=== PATIENT | female | born 1955 | race Caucasian/White ===

== ENCOUNTER 2016-07-21 18:20 | Emergency (ER) | payer OTHER ==
[2016-07-21 18:24] VITALS: BP 220/106; PULSE 92; RESP 18; TEMP 97.5; O2SAT 98
[2016-07-21] MEDS ORDERED: NAPR220T95 PO (18:32)
[2016-07-21] MEDS ORDERED: FAMO1TAB37 PO (18:32)
--- NOTE | 2016-07-21 18:50 | PD ---
HPI Chief Complaint: Hypertension Time Seen by Provider: 18:34 Travel History International Travel<30 days: No Contact w/Intl Traveler<30days: No Traveled to known affect area: No History of Present Illness HPI This 61-year-old female is sent from a dentist office because of high blood pressure. She has a history of high blood pressure and was on medication about 15 years ago most recently she is generally able to control it with exercise. She is not on medication at this time. She went to the dentist today to have an implant put in her to area blood pressure was slightly elevated when they started but with rest it came down and they've did the procedure. She was given Marcaine with a small amount of adrenaline as a local anesthetic. At around 445 she was given 600 mg of Cleocin orally. After getting the Cleocin she complained of some epigastric burning and at that time her blood pressure went up. She felt flushed. She had burning in the lower sternal and epigastric area. The burning has subsided. I have spoken with her dentist Dr. Ramires. [facility] Past Medical History Diminished Hearing: No GERD: Yes Influenza Vaccination: No ?: Not Dilation and Curettage (D&C): Yes Past Surgical History Cholecystectomy: Yes Social History Alcohol Use: No ([facility]) Tobacco Use: No Allergies-Medications (Allergen,Severity, Reaction): Coded Allergies: Codeine (Verified Allergy, Severe, Tachycardia, 07/21/16) Iodine (Verified Allergy, Severe, Hives, 07/21/16) Penicillin (Verified Allergy, Severe, Anaphylaxis, 07/21/16) Sulfabenzamide (Verified Allergy, Unknown, 07/21/16) Reported Meds & Prescriptions Reported Meds & Active Scripts Active Reported Aleve (Naproxen Sodium) 220 Mg Tab 220 Mg PO BID PRN Pepcid (Famotidine) 20 Mg Tab 20 Mg PO HS Review of Systems General / Constitutional: No: Fever, Chills Eyes: No: Diploplia, Blurred Vision HENT: No: Headaches, Vertigo Cardiovascular: Positive: Chest Pain or Discomfort Gastrointestinal: Positive: Abdominal Pain, No: Nausea Genitourinary: No: Urgency, Frequency Musculoskeletal: No: Myalgias, Arthralgias Skin: No Rash Physical Exam Narrative GENERAL: Well-developed female SKIN: Warm and dry. HEAD: Atraumatic. Normocephalic. EYES: Pupils equal and round. No scleral icterus. No injection or drainage. ENT: No nasal bleeding or discharge. Mucous membranes pink and moist. NECK: Trachea midline. No JVD. CARDIOVASCULAR: Regular rate and rhythm. No murmur appreciated. RESPIRATORY: No accessory muscle use. Clear to auscultation. Breath sounds equal bilaterally. GASTROINTESTINAL: Abdomen soft, non-tender, nondistended. Hepatic and splenic margins not palpable. MUSCULOSKELETAL: No obvious deformities. No clubbing. No cyanosis. No edema. NEUROLOGICAL: Awake and alert. No obvious cranial nerve deficits. Motor grossly within normal limits. Normal speech. PSYCHIATRIC: Appropriate mood and affect; insight and judgment normal. Data Data Last Documented VS Vital Signs Date Time Temp Pulse Resp B/P Pulse Ox O2 Delivery O2 Flow Rate FiO2 07/21/16 19:55 86 18 156/98 97 Room Air 07/21/16 19:15 97.7 Orders Electrocardiogram (07/21/16 18:48) [facility] Medical Decision Making Medical Screen Exam Complete: Yes Emergency Medical Condition: Yes Medical Record Reviewed: Yes Differential Diagnosis Differential includes adverse medication reaction, hypertension, Narrative Course Patient has had multiple reactions to different medications and feels like that' s what happened today. She has had some persistent elevations of her blood pressure that is come down considerably from what was at the dentist office. She has had some elevations in the past and has not been on medication. She will be released with instructions to monitor her blood pressure with her doctor. Diagnosis Primary Impression: Hypertension Qualified Code: I10 - Essential hypertension Additional Instructions: Follow-up with your own medical doctor, low salt diet, return as needed Disposition: 01 DISCHARGE HOME Condition: Stable Alli Flor MD Jul 21, 2016 18:50
[2016-07-21 19:15] VITALS: BP 180/92; PULSE 90; RESP 18; TEMP 97.7; O2SAT 97
[2016-07-21 19:40] VITALS: BP 171/93; PULSE 82; RESP 18; O2SAT 97
[2016-07-21 19:55] VITALS: BP 156/98; PULSE 86; RESP 18; O2SAT 97
--- NOTE | 2016-07-22 22:30 | EKG ---
Date Performed: 07/21/2016 Time Performed: 19:15:46 PTAGE: 61 years EKG: Sinus rhythm Nonspecific ST and T wave abnormalities Borderline ECG NO PREVIOUS TRACING DOCTOR: Madhav Del Castillo Interpretating Date/Time 07/22/2016 22:29:06
== END 2016-07-21 20:20 | disposition home or self-care (01) ==
LOC: PHED 18:20
DX: I10 Essential (primary) hypertension (principal)
CPT/HCPCS: 93005; 99283